=== PATIENT | male | born 1955 | race Caucasian/White ===

== ENCOUNTER 2021-07-07 11:19 | Emergency (ER) | payer MEDICARE, OTHER ==
[~2021-07-07 11:19] MED LIST: ASPIRIN EC81 MG PO; COZAAR 25MG TAB25 MG PO; PRAVACHOL20 M1 PO; VITAMIN B-121000 MC1 PO; ZOLPIDEM 10MG T10 MG PO; ZYRTEC10 MG PO
[2021-07-07 12:41] LABS: BASOPHIL 0.4 % (0-2); EOSINOPHIL 0.2 % (0-7); HCT 47.8 % (42.0-52.0); LYMPHOCYTE 25.4 % (15-48); MCH 32.3 pg (25.0-31.0); MCHC 33.5 g/dL (32.0-36.0); MCV 96.4 fL (78.0-100.0); MONOCYTE 15.8 % (0-12); MPV 9.2 fL (6.0-9.5); NEUTROPHIL 57.8 % (41-80); NRBC 0; PLT 155 K/uL (150-400); RBC 4.96 M/uL (4.70-6.00); RDW 12.5 % (11.5-14.0); WBC 5.6 K/uL (4.0-10.5)
[2021-07-07 12:51] LABS: BUN/CREAT RATIO (CALC) 8.3 RATIO; CREATININE 0.96 mg/dL (0.67-1.17); POTASSIUM 3.9 mmol/L (3.5-5.1)
[2021-07-07] MEDS ORDERED: MEDROL 4MG DOSEP4 MG PO (14:38)
== END 2021-07-07 15:08 | disposition home or self-care (01) ==
LOC: FER 11:19
PROVIDERS: Nurse Practitioner Family
DX: U07.1 COVID-19 (principal); J12.82 Pneumonia due to coronavirus disease 2019; I10 Essential (primary) hypertension; Z23 Encounter for immunization
CPT/HCPCS: 36415; 71045; 80048; 85025; J1100; M0245; Q0245

== ENCOUNTER 2021-07-11 10:02 | Emergency (ER) | payer MEDICARE, OTHER ==
[~2021-07-11 10:02] MED LIST changes: +MEDROL 4MG DOSEP4 MG PO
== END 2021-07-11 12:47 | disposition home or self-care (01) ==
LOC: FER 10:02
DX: M19.011 Primary osteoarthritis, right shoulder (principal); I10 Essential (primary) hypertension
CPT/HCPCS: 73030

== ENCOUNTER → 2021-11-28 | Day surgery (SDC) | payer MEDICARE, OTHER ==
[~2021-11-28] VITALS: Ht 182.9 cm; Wt 91.8 kg
[~2021-11-28] MED LIST changes: +DIOVAN80 MG PO; -PRAVACHOL20 M1 PO; +PRAVACHOL20 MG PO
== END | disposition home or self-care (01) ==
LOC: FAS 09:54
DX: D12.3 Benign neoplasm of transverse colon (principal); D12.8 Benign neoplasm of rectum; I10 Essential (primary) hypertension; I25.10 Atherosclerotic heart disease of native coronary artery without angina pectoris; E78.5 Hyperlipidemia, unspecified; Z79.82 Long term (current) use of aspirin; Z79.899 Other long term (current) drug therapy
CPT/HCPCS: J2250; J2704; J7120